=== PATIENT | male | born 1965 | race Caucasian/White ===

== ENCOUNTER → 2020-09-11 | Outpatient (CLI) | payer BC | END | disposition home or self-care (01) | LOC: LABWHC1 16:15 | PROVIDERS: ATTEND Family Medicine | DX: Z20.828 Contact with and (suspected) exposure to other viral communicable diseases (principal) | CPT/HCPCS: U0003; C9803 ==

== ENCOUNTER 2023-05-26 13:48 | Inpatient (IN) | payer BC ==
--- NOTE | 2023-05-26 13:53 | ED ---
Abdominal Pain HPI - General Source: patient, RN notes reviewed Mode of arrival: ambulatory Limitations: no limitations - History of Present Illness MD Complaint: abdominal pain Location: RLQ <Charlene Ellington - Last Filed: 05/26/23 13:53> <Jovanny Painting - Last Filed: 05/26/23 16:15> - General Chief Complaint: Abdominal Pain Stated Complaint: abd pain Time Seen by Provider: 05/26/23 13:52 - History of Present Illness Initial Comments: This is a 58 year old male who presents to the emergency department or RLQ pain. States that this started at about noon today, however before this it had been on and off for about a year. Denies any nausea, vomiting, fevers, chills, or changes in bowel/bladder habits. (Charlene Ellington) This is a 58-year-old male who states about 11:30 today he started having severe right lower quadrant abdominal pain. Patient states in the last year he has had this occur 3 other times. Patient states the pain came on suddenly and it persists. Patient states touching the area is very tender. Patient denies any dysuria hematuria urinary frequency. Patient denies any nausea vomiting. Patient denies any diarrhea. Patient denies any back pain. (Jovanny Painting) - Related Data Previous Rx's Medication Instructions Recorded Acetaminophen with Codeine 1 tab PO Q4H PRN 3 Days #18 tab 12/04/19 [Tylenol w/codeine #3] Aspirin 325 mg PO DAILY #14 tab 12/04/19 Allergies Allergy/AdvReac Type Severity Reaction Status Date / Time No Known Allergies Allergy Verified 12/04/19 05:24 Review of Systems ROS Other: All systems not noted in ROS Statement are negative. <Charlene Ellington - Last Filed: 05/26/23 13:53> ROS Other: All systems not noted in ROS Statement are negative. <Jovanny Painting - Last Filed: 05/26/23 16:15> ROS Statement: Those systems with pertinent positive or pertinent negative responses have been documented in the HPI. Past Medical History Past Medical History: No Reported History History of Any Multi-Drug Resistant Organisms: None Reported Past Surgical History: No Surgical Hx Reported Past Psychological History: No Psychological Hx Reported Past Alcohol Use History: Unable to Obtain, Heavy, Occasional Past Drug Use History: None Reported <Charlene Ellington - Last Filed: 05/26/23 13:53> General Exam <Charlene Ellington - Last Filed: 05/26/23 13:53> <Jovanny Painting - Last Filed: 05/26/23 16:15> - General Exam Comments Initial Comments: Visual Physical Exam Vital signs reviewed General: Well-appearing, nontoxic, no acute distress. Head: Normocephalic, atraumatic Eyes: PERRLA, EOMI ENT: Airway patent Chest: Nonlabored breathing Skin: No visual rash, normal skin tone Neuro: Alert and oriented 3 Musculoskeletal: No gross abnormalities I performed the QuickNote portion of this chart. Signed Charlene Ellington PA-C. (Charlene Ellington) GENERAL: Patient is well-developed and well-nourished. Patient is nontoxic and well- hydrated and is in mild distress. ENT: Neck is soft and supple. No significant lymphadenopathy is noted. Oropharynx is clear. Moist mucous membranes. Neck has full range of motion without eliciting any pain. EYES: The sclera were anicteric and conjunctiva were pink and moist. Extraocular movements were intact and pupils were equal round and reactive to light. Eyelids were unremarkable. PULMONARY: Unlabored respirations. Good breath sounds bilaterally. No audible rales rhonchi or wheezing was noted. CARDIOVASCULAR: There is a regular rate and rhythm without any murmurs gallops or rubs. ABDOMEN: Rebound tenderness in the right lower quadrant SKIN: Skin is clear with no lesions or rashes and otherwise unremarkable. NEUROLOGIC: Patient is alert and oriented x3. Cranial nerves II through XII are grossly intact. Motor and sensory are also intact. Normal speech, volume and content. Symmetrical smile. MUSCULOSKELETAL: Normal extremities with adequate strength and full range of motion. LYMPHATICS: No significant lymphadenopathy is noted PSYCHIATRIC: Normal psychiatric evaluation. (Jovanny Painting) Course Vital Signs 05/26/23 05/26/23 13:48 15:49 Temperature 98.7 F 98.2 F Pulse Rate 86 84 Respiratory 16 16 Rate Blood Pressure 120/77 139/79 O2 Sat by Pulse 98 98 Oximetry Medical Decision Making - Lab Data Result diagrams: 05/26/23 14:00 05/26/23 14:00 <PaintingJovanny arnett - Last Filed: 05/26/23 16:15> - Medical Decision Making EKG is interpreted by myself. EKG shows sinus rhythm at 75 bpm SD interval 178 QRSs 106 QT interval 375 QTC is 44. Patient's EKG shows no ST segment elevation or depression Was pt. sent in by a medical professional or institution (, PA, SEARCH ANALYST, urgent care, hospital, or [facility]...) When possible be specific @ -No Did you speak to anyone other than the patient for history (EMS, parent, family, police, friend...)? What history was obtained from this source @ -No Did you review nursing and triage notes (agree or disagree)? Why? @ -I reviewed and agree with nursing and triage notes Were old charts reviewed (outside hosp., previous admission, EMS record, old EKG, old radiological studies, urgent care reports/EKG's, [facility] records)? Report findings @ -No old charts were reviewed Differential Diagnosis (chest pain, altered mental status, abdominal pain women, abdominal pain men, vaginal bleeding, weakness, fever, dyspnea, syncope, headache, dizziness, GI bleed, back pain, seizure, CVA, palpatations, mental h ealth, musculoskeletal)? @ -Differential Abdominal Pain Men: Appendicitis, cholecystitis, diverticulosis, ischemic bowel, pancreatitis, hepatitis, UTI, gastroenteritis, AAA, incarcerated hernia, bowel obstruction, constipation, inflammatory bowel, hepatitis, peptic ulcer disease, splenic infarction, perforated viscus, testicular torsion, this is not meant to be an all-inclusive list EKG interpreted by me (3pts min.). @ -As above X-rays interpreted by me (1pt min.). @ -None done CT interpreted by me (1pt min.). @ -CT of the abdomen shows acute appendicitis with no perforation U/S interpreted by me (1pt. min.). @ -None done What testing was considered but not performed or refused? (CT, X-rays, U/S, lab s)? Why? @ -None What meds were considered but not given or refused? Why? @ -None Did you discuss the management of the patient with other professionals (professionals i.e. , RITA, SEARCH ANALYST, lab, RT, psych nurse, dialysis social worker, associate professor of archaeology, teacher, giving officer, family preservation caseworker)? Give summary @ -I spoke with Dr. Cardona to . agreed to admit the patient admitted the patient Was smoking cessation discussed for >3mins.? @ -No Was critical care preformed (if so, how long)? @ -No Were there social determinants of health that impacted care today? How? (Homelessness, low income, unemployed, alcoholism, drug addiction, transportation, low edu. Level, literacy, decrease access to med. care, long term, rehab)? @ -No Was there de-escalation of care discussed even if they declined (Discuss DNR or withdrawal of care, Hospice)? DNR status @ -No What co-morbidities impacted this encounter? (DM, HTN, Smoking, COPD, CAD, Cancer, CVA, ARF, Chemo, Hep., AIDS, mental health diagnosis, sleep apnea, morbid obesity)? @ -None Was patient admitted / discharged? Hospital course, mention meds given and route, prescriptions, significant lab abnormalities, going to OR and other pertinent info. @ -Issues CAT scan confirmed the clinical examination results of acute appendicitis. His to the patient's os and Dr. Cardona admitted the patient wrote admitting orders. Undiagnosed new problem with uncertain prognosis? @ -No Drug Therapy requiring intensive monitoring for toxicity (Heparin, Nitro, Insulin, Cardizem)? @ -No Were any procedures done? @ -No Diagnosis/symptom? @ -Acute appendicitis Acute, or Chronic, or Acute on Chronic? @ -Acute Uncomplicated (without systemic symptoms) or Complicated (systemic symptoms)? @ Complicated Poses a threat to life or bodily function? How? (Chest pain, [place], [place], pneumonia, PE, COPD, DKA, ARF, appy, cholecystitis, CVA, Diverticulitis, Homicidal, Suicidal, threat to staff... and all critical care pts) @ Yes this could lead to sepsis and end organ dysfunction (Jovanny Painting) - Lab Data Lab Results 05/26/23 05/26/23 05/26/23 Range/Units 14:00 14:00 14:00 WBC 10.6 (3.8-10.6) k/uL RBC 4.93 (4.30-5.90) m/uL Hgb 15.5 (13.0-17.5) gm/dL Hct 45.5 (39.0-53.0) % MCV 92.4 (80.0-100.0) fL MCH 31.3 (25.0-35.0) pg MCHC 33.9 (31.0-37.0) g/dL RDW 13.1 (11.5-15.5) % Plt Count 183 (150-450) k/uL MPV 6.9 Neutrophils % 77 % Lymphocytes % 17 % Monocytes % 3 % Eosinophils % 2 % Basophils % 0 % Neutrophils # 8.1 H (1.3-7.7) k/uL Lymphocytes # 1.8 (1.0-4.8) k/uL Monocytes # 0.3 (0-1.0) k/uL Eosinophils # 0.2 (0-0.7) k/uL Basophils # 0.0 (0-0.2) k/uL Sodium 140 (137-145) mmol/L Potassium 4.9 (3.5-5.1) mmol/L Chloride 105 (98-107) mmol/L Carbon Dioxide 30 (22-30) mmol/L Anion Gap 5 mmol/L BUN 20 (9-20) mg/dL Creatinine 0.90 (0.66-1.25) mg/dL Est GFR (CKD-EPI)AfAm >90 (>60 ml/min/1.73 sqM) Est GFR (CKD-EPI)NonAf >90 (>60 ml/min/1.73 sqM) Glucose 109 H (74-99) mg/dL Plasma Lactic Acid Neeraj 1.0 (0.7-2.0) mmol/L Calcium 9.1 (8.4-10.2) mg/dL Total Bilirubin 0.9 (0.2-1.3) mg/dL AST 30 (17-59) U/L ALT 25 (4-49) U/L Alkaline Phosphatase 56 (38-126) U/L Total Protein 7.6 (6.3-8.2) g/dL Albumin 4.4 (3.5-5.0) g/dL Urine Color Urine Appearance (Clear) Urine pH (5.0-8.0) Ur Specific [place] (1.001-1.035) Urine Protein (Negative) Urine Glucose (UA) (Negative) Urine Ketones (Negative) Urine Blood (Negative) Urine Nitrite (Negative) Urine Bilirubin (Negative) Urine Urobilinogen (<2.0) mg/dL Ur Leukocyte Esterase (Negative) 05/26/23 Range/Units 15:54 WBC (3.8-10.6) k/uL RBC (4.30-5.90) m/uL Hgb (13.0-17.5) gm/dL Hct (39.0-53.0) % MCV (80.0-100.0) fL MCH (25.0-35.0) pg MCHC (31.0-37.0) g/dL RDW (11.5-15.5) % Plt Count (150-450) k/uL MPV Neutrophils % % Lymphocytes % % Monocytes % % Eosinophils % % Basophils % % Neutrophils # (1.3-7.7) k/uL Lymphocytes # (1.0-4.8) k/uL Monocytes # (0-1.0) k/uL Eosinophils # (0-0.7) k/uL Basophils # (0-0.2) k/uL Sodium (137-145) mmol/L Potassium (3.5-5.1) mmol/L Chloride (98-107) mmol/L Carbon Dioxide (22-30) mmol/L Anion Gap mmol/L BUN (9-20) mg/dL Creatinine (0.66-1.25) mg/dL Est GFR (CKD-EPI)AfAm (>60 ml/min/1.73 sqM) Est GFR (CKD-EPI)NonAf (>60 ml/min/1.73 sqM) Glucose (74-99) mg/dL Plasma Lactic Acid Neeraj (0.7-2.0) mmol/L Calcium (8.4-10.2) mg/dL Total Bilirubin (0.2-1.3) mg/dL AST (17-59) U/L ALT (4-49) U/L Alkaline Phosphatase (38-126) U/L Total Protein (6.3-8.2) g/dL Albumin (3.5-5.0) g/dL Urine Color Yellow Urine Appearance Clear (Clear) Urine pH 5.0 (5.0-8.0) Ur Specific [place] 1.025 (1.001-1.035) Urine Protein Negative (Negative) Urine Glucose (UA) Negative (Negative) Urine Ketones Negative (Negative) Urine Blood Negative (Negative) Urine Nitrite Negative (Negative) Urine Bilirubin Negative (Negative) Urine Urobilinogen <2.0 (<2.0) mg/dL Ur Leukocyte Esterase Negative (Negative) Disposition <Charlene Ellington - Last Filed: 05/26/23 13:53> Time of Disposition: 16:15 <Jovanny Painting - Last Filed: 05/26/23 16:15> Clinical Impression: Acute appendicitis Disposition: ADMITTED IP TO THIS [facility] Referrals: Danny Walter DO [Primary Care Provider] - 1-2 days
[2023-05-26 14:14] LABS: Basophils % (A) 0 %; Eosinophils # (A) 0.2 k/uL (0-0.7); Eosinophils % (A) 2 %; HCT 45.5 % (39.0-53.0); HGB 15.5 gm/dL (13.0-17.5); Lymphocytes # (A) 1.8 k/uL (1.0-4.8); Lymphocytes % (A) 17 %; MCH 31.3 pg (25.0-35.0); MCHC 33.9 g/dL (31.0-37.0); MCV 92.4 fL (80.0-100.0); Mean Platelet Volume 6.9; Monocytes # (A) 0.3 k/uL (0-1.0); Monocytes % (A) 3 %; Neutrophils # (A) 8.1 k/uL (1.3-7.7); Neutrophils % (A) 77 %; Platelet Count 183 k/uL (150-450); RBC 4.93 m/uL (4.30-5.90); RDW 13.1 % (11.5-15.5); WBC 10.6 k/uL (3.8-10.6)
[2023-05-26 14:23] LABS: ALT 25 U/L (4-49); AST 30 U/L (17-59); African American GFR (CKD) >90 (>60 ml/min/1.73 sqM); Albumin 4.4 g/dL (3.5-5.0); Alkaline Phosphatase 56 U/L (38-126); Anion Gap 5 mmol/L; Blood Urea Nitrogen 20 mg/dL (9-20); Calcium 9.1 mg/dL (8.4-10.2); Carbon Dioxide 30 mmol/L (22-30); Chloride 105 mmol/L (98-107); Glucose 109 mg/dL (74-99); Non-African American GFR(CKD) >90 (>60 ml/min/1.73 sqM); Potassium 4.9 mmol/L (3.5-5.1); Sodium 140 mmol/L (137-145); Total Bilirubin 0.9 mg/dL (0.2-1.3); Total Protein 7.6 g/dL (6.3-8.2)
--- NOTE | 2023-05-26 15:23 | CT ---
EXAMINATION TYPE: CT abdomen pelvis wo con CT DLP: 864.8 mGycm, Automated exposure control for dose reduction was used. DATE OF EXAM: 05/26/2023 3:11 PM COMPARISON: None CLINICAL INDICATION:Male, 58 years old with history of Abdominal pain; RLQ pain TECHNIQUE: Axial CT of the abdomen and pelvis. Sagittal and coronal reformats were created on a [place] [employer] workstation. Contrast used: mL of , (none if empty) Oral contrast used: without Oral Contrast (none if empty) FINDINGS: LOWER CHEST: Unremarkable ABDOMEN LIVER: Unremarkable GALLBLADDER AND BILE DUCTS: Unremarkable. PANCREAS: Unremarkable. SPLEEN: Unremarkable. ADRENAL GLANDS: Unremarkable. KIDNEYS AND URETERS: No evidence of hydronephrosis or renal calculus. The ureters are unremarkable. B ilateral renal cysts. PELVIS BLADDER: Unremarkable REPRODUCTIVE: Prostate is enlarged in size measuring 6.3 cm in transverse dimension. ABDOMEN & PELVIS STOMACH AND BOWEL: No evidence of bowel obstruction. Tubular structure felt to represent the appendix series 202 image 46 is dilated up to 11 mm with fat stranding changes adjacent to it. PERITONEUM/RETROPERITONEUM: No evidence of pneumoperitoneum or free fluid. VASCULATURE: No evidence of aortic aneurysm. MUSCULOSKELETAL: No acute osseous abnormalities. Moderate disc degeneration changes are present throu ghout the thoracolumbar spine. Grade 1 atrial listhesis of L5-S1. There is at least moderate to sever e bilateral neural foraminal stenosis at L5-S1. LYMPH NODENo gross evidence for lymphadenopathy.hy. SOFT TISSUE/ABDOMINAL WALFat-containing umbilical hernia.ia. IMPRESSION: Acute appendicitis. No evidence for perforation at this time.
[2023-05-26 16:08] LABS: Appearance,Urine Clear (Clear); Bilirubin,Urine Negative (Negative); Blood,Urine Negative (Negative); Color,Urine Yellow; Glucose,Urine (UA) Negative (Negative); Ketones,Urine Negative (Negative); Leukocyte Esterase,Urine Negative (Negative); Nitrite,Urine Negative (Negative); Protein,Urine Negative (Negative); Specific Gravity,Urine 1.025 (1.001-1.035); Urobilinogen,Urine <2.0 mg/dL (<2.0)
[2023-05-26] MEDS ORDERED: PIPERACILLIN-TAZOBACTAM 3.375 GM in SODIUM CHLORIDE 0.9% 100 ML IVPB STA (16:08)
[2023-05-26] MEDS ORDERED: SODIUM CHLORIDE 0.9% 1,000 ML IV ONE ×2 (16:15→18:06)
[2023-05-26] MEDS ORDERED: DIPH,PERTUS(ACELL)TETVAC-LF 0.5 ML VIAL IM ONE (17:25)
[2023-05-26] MEDS ORDERED: ACETAMINOPHEN TAB 500 MG TAB PO STA (17:25)
--- NOTE | 2023-05-26 18:02 | P.GSHP ---
History of Present Illness H&P Date: 05/26/23 Chief Complaint: Right lower quadrant pain Is a 4-year-old male who has intermittent history of right lower quadrant pain over the last year. Patient presents emergency room with complaints of severe right lower quadrant pain today. He is found have acute appendicitis. Past Medical History Past Medical History: No Reported History History of Any Multi-Drug Resistant Organisms: None Reported Past Surgical History: No Surgical Hx Reported Past Psychological History: No Psychological Hx Reported Past Alcohol Use History: Unable to Obtain, Heavy, Occasional Past Drug Use History: None Reported Medications and Allergies Home Medications Medication Instructions Recorded Confirmed Type No Known Home Medications 05/26/23 05/26/23 History Allergies Allergy/AdvReac Type Severity Reaction Status Date / Time No Known Allergies Allergy Verified 05/26/23 17:13 Surgical - Exam Vital Signs Temp Pulse Resp BP Pulse Ox 98.7 F 86 16 120/77 98 05/26/23 13:48 05/26/23 13:48 05/26/23 13:48 05/26/23 13:48 05/26/23 13:48 - General well developed, well nourished, no distress - Eyes PERRL - ENT normal pinna - Neck no masses - Respiratory normal expansion - Cardiovascular Rhythm: regular - Abdomen Marked right lower quadrant tenderness Abdomen: soft Results - Labs 05/26/23 14:00 05/26/23 14:00 Abnormal Lab Results - Last 24 Hours (Table) 05/26/23 05/26/23 Range/Units 14:00 14:00 Neutrophils # 8.1 H (1.3-7.7) k/uL Glucose 109 H (74-99) mg/dL Diabetes panel 05/26/23 Range/Units 14:00 Sodium 140 (137-145) mmol/L Potassium 4.9 (3.5-5.1) mmol/L Chloride 105 (98-107) mmol/L Carbon Dioxide 30 (22-30) mmol/L BUN 20 (9-20) mg/dL Creatinine 0.90 (0.66-1.25) mg/dL Glucose 109 H (74-99) mg/dL Calcium 9.1 (8.4-10.2) mg/dL AST 30 (17-59) U/L ALT 25 (4-49) U/L Alkaline Phosphatase 56 (38-126) U/L Total Protein 7.6 (6.3-8.2) g/dL Albumin 4.4 (3.5-5.0) g/dL Calcium panel 05/26/23 Range/Units 14:00 Calcium 9.1 (8.4-10.2) mg/dL Albumin 4.4 (3.5-5.0) g/dL Pituitary panel 05/26/23 Range/Units 14:00 Sodium 140 (137-145) mmol/L Potassium 4.9 (3.5-5.1) mmol/L Chloride 105 (98-107) mmol/L Carbon Dioxide 30 (22-30) mmol/L BUN 20 (9-20) mg/dL Creatinine 0.90 (0.66-1.25) mg/dL Glucose 109 H (74-99) mg/dL Calcium 9.1 (8.4-10.2) mg/dL Adrenal panel 05/26/23 Range/Units 14:00 Sodium 140 (137-145) mmol/L Potassium 4.9 (3.5-5.1) mmol/L Chloride 105 (98-107) mmol/L Carbon Dioxide 30 (22-30) mmol/L BUN 20 (9-20) mg/dL Creatinine 0.90 (0.66-1.25) mg/dL Glucose 109 H (74-99) mg/dL Calcium 9.1 (8.4-10.2) mg/dL Total Bilirubin 0.9 (0.2-1.3) mg/dL AST 30 (17-59) U/L ALT 25 (4-49) U/L Alkaline Phosphatase 56 (38-126) U/L Total Protein 7.6 (6.3-8.2) g/dL Albumin 4.4 (3.5-5.0) g/dL - Imaging CT scan - abdomen: report reviewed (Computed tomography scan shows evidence of acute appendicitis) CT scan - chest: report reviewed Assessment and Plan (1) Acute appendicitis Current Visit: Yes Status: Acute Priority: High Code(s): K35.80 - UNSPECIFIED ACUTE APPENDICITIS SNOMED Code(s): 39152552 Plan: Acute appendicitis. Patient will undergo laparoscopic appendectomy today.
[2023-05-26] MEDS ORDERED: DEXAMETHASONE SOD PHOSPHATE 4 MG/ML 1 ML VIAL ONE (18:13)
[2023-05-26] MEDS ORDERED: SUCCINYLCHOLINE CHLORIDE 200 MG/10 ML VIAL IV ONE (18:13)
[2023-05-26] MEDS ORDERED: KETOROLAC 30 MG/ML 1 ML VIAL ONE (18:13)
[2023-05-26] MEDS ORDERED: fentaNYL (PF) 50 MCG/ML 2 ML AMP ONE (18:13)
[2023-05-26] MEDS ORDERED: LIDOCAINE 2% INJ 20 MG/ML (2 ML VIAL) ONE (18:13)
[2023-05-26] MEDS ORDERED: MIDAZOLAM 2 MG/2 ML VIAL ONE (18:13)
[2023-05-26] MEDS ORDERED: ONDANSETRON 4 MG/2 ML VIAL ONE (18:13)
[2023-05-26] MEDS ORDERED: PROPOFOL 10 MG/ML 20 ML VIAL IV ONE (18:13)
[2023-05-26] MEDS ORDERED: HYDROmorphone (PF) 1 MG/ML ONE (18:13)
[2023-05-26] MEDS ORDERED: BUPIVACAINE (PF) 0.25% 10 ML VIAL SQ ONE ×2 (18:31)
[2023-05-26] MEDS ORDERED: LACTATED RINGERS 1,000 ML IV ONE ×2 (18:55→19:01)
--- NOTE | 2023-05-26 19:00 | P.OP ---
Date of Procedure: 05/26/23 Preoperative Diagnosis: Acute appendicitis Postoperative Diagnosis: Acute and chronic appendicitis Procedure(s) Performed: Appendectomy with limited right colon resection Anesthesia: BRITTANY Surgeon: Bang Cardona Estimated Blood Loss (ml): 25 Pathology: other (Appendix and cecum) Condition: stable Disposition: PACU Description of Procedure: Patient's placed in the operative table in supine position. He received general endotracheal tube anesthesia. His abdomen was prepped and draped usual sterile fashion. The skin was anesthetized 1% local Xylocaine. Using 11 blade the skin was incised umbilicus. And then using a pair of [place] clamps the umbilicus was grasped in the Veress needle was positioned into the perineal cavity. Position. There is still confirmed with positive drop test. The abdomen was insufflated. After adequate insufflation a 5 mm trochars placed at the umbilicus. Next the laparoscope was placed at the umbilicus. And then the 10 mm trochars placed in the epigastric position and another 5 mm trochars placed in the suprapubic position. The appendix was visualized. The pelvis. Be grossly inflamed. The base the appendix was not well visualized due to significant inflammatory change several times made to dissect the base appendix but due to the significant inflammatory changes this was not possible. The 10 mm trocar is placed with a 12 mm trocar. At this point it was decided perform a cecal excision which included the base the appendix. The mesentery the appendix was divided using the Harmonic scissors. And then the base of the appendix was visualized. The cecum was visualized. The cecum was then transected with a GI stapler. A blue cartridge was used. The specimens placed in Endo Catch and brought out through the 12 mm trocar site. The abscess area. There is no bleeding seen. The 12 mm trocar site was closed with a Raymond Bonner suture passer and 0 Vicryl suture. The trochars withdrawn. Skin was closed interrupted 3-0 Monocryl suture. Dermabond dressings was applied. Patient top she will was sent to recovery room in stable condition.
[2023-05-26] MEDS ORDERED: NALOXONE 0.4 MG/ML 1 ML VIAL IV PRN (19:01)
[2023-05-26] MEDS ORDERED: ONDANSETRON 4 MG/2 ML VIAL IVP PRN (19:01)
[2023-05-26] MEDS ORDERED: HYDROmorphone 0.5 MG/0.5 ML SYRINGE IVP PRN (19:01)
[2023-05-27] MEDS: KETOROLAC 15 MG/ML 1 ML VIAL IVP SCH ×4 (00:16→18:00)
[2023-05-27] MEDS: ENOXAPARIN 40 MG/0.4 ML SYRINGE SQ SCH (08:07)
--- NOTE | 2023-05-27 12:52 | P.PN ---
Progress Note - Text Progress Note Date: 05/27/23 patient's postoperative day 1 from laparoscopic appendectomy for acute/chronic appendicitis. The patient is doing very well. He denies any significant abdominal pain. He is tolerating diet. On exam vital signs appear stable. Abdomen soft incision sites are clean dry and intact. Patient to receive IV antibiotic. He will plan for discharge home tomorrow.
[2023-05-27 13:32] VITALS: BMI 28.2
[2023-05-27] MEDS: PIPERACILLIN-TAZOBACTAM 3.375 GM in SODIUM CHLORIDE 0.9% 100 ML IVPB SCH (16:37)
--- NOTE | 2023-05-27 23:27 | P.CONS ---
History of Present Illness - Reason for Consult Consult date: 05/27/23 Medical management - Chief Complaint Abdominal pain - History of Present Illness Patient is a 58-year-old male without significant past medical history presents to ER with complaints of right lower quadrant pain started on 05/26/2023 around 12. Patient became persistent and unable to tolerate. Patient presented to ER for evaluation. Otherwise denies any complaints of recent illnesses. Denies any dysuria or hematuria. No diarrhea. No nausea or vomiting. Patient states that he has been having on and off right lower quadrant abdominal pain for the past 1 year and occurred about 3 times. Pain usually last few minutes and subsides after that. Patient did not follow-up with his physician. CT of the abdomen pelvis showed acute appendicitis. No evidence for perforation at this time. Patient underwent appendectomy with limited right colon resection on 05/26/2023. Laboratory pressure WBC 10.6 hemoglobin 15.5 and platelets 183 Sodium 140 potassium 4.9 chloride 105 bicarb is 30 BUN 20 and creatinine 0.9 and blood sugar is 109 liver enzymes are not elevated. Urinalysis is negative for infection. Review of Systems Constitutional: Patient denies any fever or chills . no Generalized weakness. Abdomen: Patient denied any nausea or vomiting or abd. pain Cardiovascular: Patient denies any chest pain or short of breath no palpitations. Respiratory: patient denied any cough . no sputum production. No shortness of breath Neurologic: Patient denied any numbness or tingling headache. Musculoskeletal: Patient denies any complaints of joint swelling or deformity. Skin: Negative Psychiatric: Negative Endocrine: No heat or cold intolerance. No recent weight gain. Genitourinary: No dysuria or hematuria. All other 14 point ROS negative except the above Past Medical History Past Medical History: No Reported History History of Any Multi-Drug Resistant Organisms: None Reported Past Surgical History: No Surgical Hx Reported Past Anesthesia/Blood Transfusion Reactions: No Reported Reaction Past Psychological History: No Psychological Hx Reported Past Alcohol Use History: Unable to Obtain, Heavy, Occasional Past Drug Use History: None Reported Medications and Allergies Home Medications Medication Instructions Recorded Confirmed Type No Known Home Medications 05/26/23 05/26/23 History Allergies Allergy/AdvReac Type Severity Reaction Status Date / Time No Known Allergies Allergy Verified 05/26/23 17:13 Physical Exam Vitals: Vital Signs Temp Pulse Pulse Resp BP BP Pulse Ox 05/27/23 13:21 98.4 F 63 16 111/72 96 05/27/23 07:17 97.5 F L 57 L 16 108/68 96 05/27/23 01:51 98.1 F 56 L 100/62 95 05/26/23 22:14 66 95/58 96 05/26/23 21:59 70 102/64 95 05/26/23 21:44 69 97/61 92 L 05/26/23 21:29 70 93/68 94 L 05/26/23 21:14 70 106/64 94 L 05/26/23 20:59 71 109/64 94 L 05/26/23 20:45 71 91/63 93 L 05/26/23 20:29 73 108/65 93 L 05/26/23 20:00 98.6 F 75 17 109/67 91 L 05/26/23 19:40 78 16 108/60 92 L 05/26/23 19:25 78 16 102/61 92 L 05/26/23 19:24 80 16 105/65 92 L 05/26/23 19:09 100.9 F H 82 16 103/66 92 L 05/26/23 18:06 100.5 F H 98 18 115/77 97 05/26/23 17:28 100.4 F H 87 18 134/78 98 05/26/23 15:49 98.2 F 84 16 139/79 98 Intake and Output 05/26/23 05/27/23 05/27/23 22:59 06:59 14:59 Intake Total 1100 Output Total 5 Balance 1095 Intake: IV 1100 Output: Estimated Blood Loss 5 Other: Voiding Method Toilet # Voids 1 Weight 99.79 kg 99.79 kg PHYSICAL EXAMINATION: Patient is lying in the bed comfortably, no acute distress, awake alert and oriented.. HEENT: Normocephalic. Neck is supple. Pupils reactive. Nostrils clear. Oral cavity is moist. Neck reveals no JVD, carotid bruits, or thyromegaly. CHEST EXAMINATION: Trachea is central. Symmetrical expansion. Lung wilson clear to auscultation and percussion. CARDIAC: Normal S1, S2 with no gallops. No murmurs ABDOMEN: Soft. Bowel sounds present. Mild tenderness at the incision sites. Incisions look clean and intact. No organomegaly. No abdominal bruits. Extremities: reveal no edema. No clubbing or cyanosis Neurologically awake, alert, oriented x3 with well-coordinated movements. No focal deficits noted Skin: No rash or skin lesions. Psychiatric: Coperative. Nonsuicidal, Musculoskeletal: No joint swelling or deformity. Normal range of motion. Results CBC & Chem 7: 05/26/23 14:00 05/26/23 14:00 Labs: Abnormal Lab Results - Last 24 Hours (Table) 05/26/23 Range/Units 14:00 Glucose 109 H (74-99) mg/dL Assessment and Plan Assessment: RLQ acute appendicitis. S/p laparoscopic appendectomy postoperative day 1 Gram-positive cocci in clusters bacteremia. Staph epi. Possible contaminant. Repeat cultures were ordered. GI and DVT prophylaxis Plan: Patient will be continued on IV hydration with normal saline and started on empiric antibiotics Zosyn. Continue with pain management, bowel regimen and encourage incentive spirometry. Encourage ambulation. We will continue to follow closely and follow-up repeat CBC and BMP tomorrow. Mami hernandez recommendations based on the clinical course. Thank you for your consult.
[2023-05-28] MEDS: KETOROLAC 15 MG/ML 1 ML VIAL IVP SCH ×3 (00:39→11:12)
[2023-05-28] MEDS: PIPERACILLIN-TAZOBACTAM 3.375 GM in SODIUM CHLORIDE 0.9% 100 ML IVPB SCH ×2 (00:40→09:44)
[2023-05-28] MEDS: ENOXAPARIN 40 MG/0.4 ML SYRINGE SQ SCH (09:45)
[2023-05-28 11:13] LABS: BUN/Creat Ratio 21.55 Ratio (12.00-20.00); Blood Urea Nitrogen 23.7 mg/dL (9.0-27.0); Calcium 8.4 mg/dL (8.7-10.3); Carbon Dioxide 24.8 mmol/L (21.6-31.8); Chloride 105 mmol/L (96-109); Glucose 121 mg/dL (70-110); Potassium 4.3 mmol/L (3.5-5.5); Sodium 140 mmol/L (135-145)
[2023-05-28 11:16] LABS: Basophils # (A) 0.02 X 10*3/uL (0.00-0.10); Basophils % (A) 0.2 %; Eosinophils # (A) 0.02 X 10*3/uL (0.04-0.35); Eosinophils % (A) 0.2 %; HCT 41.5 % (39.6-50.0); HGB 13.8 d/dL (13.0-17.0); Lymphocytes # (A) 1.09 X 10*3/uL (0.90-5.00); Lymphocytes % (A) 10.7 %; MCH 30.4 pg (27.0-32.0); MCHC 33.3 d/dL (32.0-37.0); MCV 91.4 FL (80.0-97.0); Mean Platelet Volume 9.2 FL (9.5-12.2); Monocytes # (A) 0.64 X 10*3/uL (0.20-1.00); Monocytes % (A) 6.3 %; NRBC Per 100 WBC 0 X 10*3/uL (0.00-0.01); Neutrophils # (A) 8.42 X 10*3/uL (1.80-7.70); Neutrophils % (A) 82.2 %; Platelet Count 175 X 10*3/uL (140-440); RBC 4.54 X 10*6/uL (4.40-5.60); RDW 13.2 % (11.5-14.5); WBC 10.23 X 10*3/uL (4.50-10.00)
[2023-05-28 14:12] VITALS: BP 133/69; PULSE 76; RESP 16; TEMP 97.6
--- NOTE | 2023-05-29 10:46 | P.PN ---
Subjective Progress Note Date: 05/28/23 - Reason for Consult Consult date: 05/27/23 Medical management - Chief Complaint Abdominal pain - History of Present Illness Patient is a 58-year-old male without significant past medical history presents to ER with complaints of right lower quadrant pain started on 05/26/2023 around 12. Patient became persistent and unable to tolerate. Patient presented to ER for evaluation. Otherwise denies any complaints of recent illnesses. Denies any dysuria or hematuria. No diarrhea. No nausea or vomiting. Patient states that he has been having on and off right lower quadrant abdominal pain for the past 1 year and occurred about 3 times. Pain usually last few minutes and subsides after that. Patient did not follow-up with his physician. CT of the abdomen pelvis showed acute appendicitis. No evidence for perforation at this time. Patient underwent appendectomy with limited right colon resection on 05/26/2023. Laboratory pressure WBC 10.6 hemoglobin 15.5 and platelets 183 Sodium 140 potassium 4.9 chloride 105 bicarb is 30 BUN 20 and creatinine 0.9 and blood sugar is 109 liver enzymes are not elevated. Urinalysis is negative for infection. 05/28/2023 Patient seen and evaluated in follow-up today status post appendectomy and reports to feeling well. Patient reports some tenderness at the sites but nothing significant. Patient is looking forward to going home. Patient is tolerating diet with no reports of nausea or vomiting. Patient has remained afebrile and denies chest pain or shortness of breath. Patient does have incentive spirometer and encourage the patient to continue using at least 10 times every hour while awake. Patient also instructed to follow-up with primary care provider on discharge. Patient is medically stable for discharge today Review of systems: Constitutional: No reports of fatigue, fever, or chills Cardiovascular: No reports of chest pain or palpitations Respiratory: No reports of shortness of breath or cough GI: No reports of nausea, vomiting, or diarrhea, reports passing gas with no bowel movement and some minimal pain at the surgical sites : No reports of dysuria or retention Neurovascular: No reports of weakness or numbness All medications have been reviewed Physical exam: Patient is lying in the bed comfortably, no acute distress, awake alert and oriented.. HEENT: Normocephalic. Neck is supple. Pupils reactive. Nostrils clear. Oral cavity is moist. Neck reveals no JVD, carotid bruits, or thyromegaly. CHEST EXAMINATION: Trachea is central. Symmetrical expansion. Lung wilson clear to auscultation and percussion. CARDIAC: Normal S1, S2 with no gallops. No murmurs ABDOMEN: Soft. Bowel sounds present. Mild tenderness at the incision sites. Incisions look clean and intact. No organomegaly. No abdominal bruits. Extremities: reveal no edema. No clubbing or cyanosis Neurologically awake, alert, oriented x3 with well-coordinated movements. No focal deficits noted Skin: No rash or skin lesions. Psychiatric: Cooperative. Non-suicidal, Musculoskeletal: No joint swelling or deformity. Normal range of motion. Assessment: RLQ acute appendicitis. S/p laparoscopic appendectomy postoperative day 2 Gram-positive cocci in clusters bacteremia. Cultures finalized with coag negative staph, contaminant. Patient is going home on Augmentin for 1 week per surgery GI and DVT prophylaxis Full code Plan: Encourage the patient to increase activity as tolerated with frequent walking Patient currently on antibiotics in the form of Zosyn and cultures finalized showing coag negative staph, likely contaminant and will continue on oral Augmentin twice daily for 1 week per surgery recommendations Patient instructed to follow-up with primary care provider on discharge Patient instructed to take incentive spirometer home and continue using at least 10 times every hour while awake Patient reports would like to go home and awaiting surgical clearance. Patient is medically stable for discharge today. Encourage the patient to follow-up with surgery as scheduled as well. Thank you kindly for this consultation. We will continue to follow during hospitalization. The impression and plan of care has been dictated by Maribell Champion, Nurse Practitioner as directed. Dr. Jeb MD I have performed a history and examination and MDM of this patient, discussed the same with the dictator, and agree with the dictator's assessment and plan as written ,documented as a scribe. Based on total visit time, I have performed more than 50% of the visit. Objective - Vital Signs Vital signs: Vital Signs Temp 98.5 F 05/28/23 07:14 Pulse 72 05/28/23 07:14 Resp 15 05/28/23 07:14 BP 111/58 05/28/23 07:14 Pulse Ox 95 05/28/23 07:14 FiO2 Intake & Output 08/16/23 08/17/23 08/17/23 18:59 06:59 18:59 Intake Total 480 Balance 480 Weight 99.79 kg Intake: Oral 480 Other: Voiding Method Toilet # Voids 3 3 - Labs CBC & Chem 7: 05/28/23 07:04 05/28/23 07:04 Labs: Microbiology - Last 24 Hours (Table) 05/26/23 16:12 Blood Culture Gram Stain - Preliminary Blood 05/26/23 16:26 Blood Culture Gram Stain - Preliminary Blood
== END 2023-05-28 15:41 | disposition home or self-care (01) | DRG 331 ==
LOC: EC 13:48 → 4SSUR 16:30 → OBSVTOIN 19:01
PROVIDERS: ADMIT Surgery; ATTEND Surgery
PROC: 0DBF4ZZ Excision of Right Large Intestine, Percutaneous Endoscopic Approach (ICD-10-PCS; 2023-05-26)
PROC: 0DTJ4ZZ Resection of Appendix, Percutaneous Endoscopic Approach (ICD-10-PCS; principal; 2023-05-26 18:00)
DX: K35.33 Acute appendicitis with perforation, localized peritonitis, and gangrene, with abscess (principal); K36 Other appendicitis; Z28.311 Partially vaccinated for COVID-19
CPT/HCPCS: 36415; 74176; 80048; 80053; 81003; 83605; 85025; 87040; 88304; 90471; 90715; 93005; 96361; 96374; 99285